=== PATIENT | female | born 1985 | race Caucasian/White ===

== ENCOUNTER 2016-10-06 12:15 | Emergency (ER) | payer OTHER ==
[2016-10-06 12:28] VITALS: BP 138/84
--- NOTE | 2016-10-06 12:56 | ERNOTE ---
Integumentary HPI - Narrative Date of Service: 10/06/16 - General Presenting Symptoms: abscess Time Seen by Provider: 10/06/16 12:37 Source: patient, RN notes reviewed Exam Limitations: no limitations - Immun/Allergies/Home Medications Immunizations: IMMUNIZATION HX Immunizations Up to Date Yes Allergies/Adverse Reactions: Allergies Allergy/AdvReac Type Severity Reaction Status Date / Time Sulfa (Sulfonamide AdvReac Unknown Other Verified 10/06/16 12:28 Antibiotics) [Sulfa(Sulfonamide Antibiotics)] Home Medications: HOME MEDICATIONS Venlafaxine HCl [Effexor Xr] 37.5 mg PO DAILY 06/18/13 [Last Taken Unknown] Cephalexin 500 mg PO TID #21 tab 10/06/16 [Last Taken Unknown] - History of Present Illness Narrative: Leigha is a 30 year old female who presents to the emergency department for an abscess on her right medial thigh that began 2 days ago. She attempted to I& D this at home without success. She reports that a small amount of bloody drainage came out of the lesion. She has no prior history of cellulitis or MRSA. She denies any systemic signs of illness. Location: Reports: lower extremity Quality: Reports: painful Prior Treatment: Denies: recently seen Review of Systems - Review of Systems Constitutional: Absent: fever, chills, malaise EYE: Present: no symptoms reported ENT: Present: no symptoms reported Respiratory: Absent: shortness of breath, cough Cardiology: Absent: chest pain, syncope Gastrointestinal/Abdominal: Absent: nausea, abdominal pain Genitourinary: Present: no symptoms reported Musculoskeletal: Absent: muscle pain, joint pain Skin: Present: lesions, lumps. Absent: rash Neurological: Absent: headache, dizziness/light-headedness Endocrine: Present: no symptoms reported Hematologic/Lymphatic: Present: no symptoms reported Psych: Present: no symptoms reported - Patient's Past Medical History Patient History - Medical: No pertinent hx Patient History - Cardiac/Respiratory: Hypertension, Other Patient History - Cancer: No Hx of Cancer Patient History - Surgical Procedures: , T & A Patient History - Other: None - Social History Living Situations: home Abuse History: No History of abuse Psych History: No pertinent hx Smoking Status: Never smoker Alcohol Use: none Drug Use: none - Immunizations Immunizations Up to Date: Yes Physical Exam - Physical Exam General Appearance: Present: wd/wn, alert, no apparent distress Respiratory: Present: no respiratory distress, no accessory muscle use Cardiovascular/Chest: Present: normal peripheral pulses Extremity Exam: Present: normal range of motion, no edema Neurological Exam: Present: alert, oriented, normal mood/affect, no motor/ sensory deficits Skin Exam: Present: normal color, warm/dry, other - Inflammed cystic lesion on right superior medial thigh - no pointing or fluctuance present, tender to palpation ED Progress - Vital Signs Patient's Vital Signs:: I have reviewed the patient's vital signs. Vital Signs: Vital Signs 10/06/16 12:22 Temperature 36.8 C Pulse Rate 102 H Respiratory 12 Rate Blood Pressure 138/84 O2 Sat by Pulse 97 Oximetry - Progress/Reassessment Chief Complaint: Abscess Progress:: Unchanged Plan - Plan Plan: Lesion does not appear ready for I&D at this point, discussed returning if it comes to a point or becomes fluctuant. Rx given for Keflex. Departure Clinical Impression: Abscess of right thigh - Departure Disposition: Home Follow Up Needed Condition: Stable Instructions: Abscess, [id number] Additional Instructions: Warm, moist compresses Tylenol and/or ibuprofen for pain if needed Return if lesion needs to be opened Referrals: Kalpana Vizcarra, [facility] [Primary Care Provider] - Prescriptions: Cephalexin 500 mg PO TID #21 tab
== END 2016-10-06 12:53 | disposition home or self-care (01) ==
LOC: ER 12:15
DX: L02.415 Cutaneous abscess of right lower limb (principal)